=== PATIENT | female | born 1990 | race Caucasian/White ===

== ENCOUNTER 2024-04-24 19:13 | Emergency (ER) | payer MEDICAID, SELFPAY ==
[2024-04-24 19:14] VITALS: BMI 25.3
--- NOTE | 2024-04-24 19:53 | PC.NURSE ---
NO ANSWER WHEN CALLED TO BE TRIAGED
--- NOTE | 2024-04-24 20:09 | PC.NURSE ---
NO ANSWER WHEN CALLED TO BE TRIAGED
== END 2024-04-24 20:57 | disposition left against medical advice (07) ==
PROVIDERS: Emergency Provider Emergency Medicine
DX: Z53.21 Procedure and treatment not carried out due to patient leaving prior to being seen by health care provider (principal)

== ENCOUNTER 2024-12-16 16:16 | Emergency (ER) | payer MEDICAID, SELFPAY ==
[2024-12-16 16:17] VITALS: BMI 28.3
[2024-12-16 16:36] VITALS: BP 119/75; PULSE 69; RESP 18; TEMP 36.7; O2SAT 100
--- NOTE | 2024-12-16 17:17 | PD.EDADULT ---
ED General RME/HPI General Chief complaint: General Adult/Misc Complain Stated complaint: LUMP AT BASE OF NECK X 1 WK Time Seen by Provider: 12/16/24 16:55 Arrival date/time: 12/16/24 16:16 34-year-old female presents with a 1 week history of a lump on the back of her neck. She first noticed the lump when it was very small, about the size of a marble. It has since increased in size and has become red with swelling and tenderness. She denies any fever chills, nausea or vomiting. Patient is currently 8 weeks . She has another similar lesion beneath the right occipital bone, without tenderness or redness. Mode of arrival: ambulatory Limitations: no limitations Related Data Home Medications ?Medication ?Instructions ?Recorded ?Confirmed vit no.95-ferrous 1 tab PO DAILY 01/20/24 01/20/24 fumarate 28 mg-folic acid 800 mcg tablet () Previous Rx's ?Medication ?Instructions ?Recorded ferrous sulfate 325 mg (65 mg 325 mg PO BID #60 tabs 01/21/24 iron) tablet Allergies Allergy/AdvReac Type Severity Reaction Status Date / Time No Known Allergies Allergy Verified 12/16/24 16:19 Review of Systems Review of Systems Systems Reviewed: All systems reviewed, normal except as documented ED Exam General Limitations: Present no limitations General appearance: Present alert and in no apparent distress Head Head exam: Present atraumatic and normal inspection Eye Eye exam: Present normal appearance; Absent scleral icterus or conjunctival injection ENT ENT exam: Present normal exam Neck Neck exam: Present other (Cyst noted to the lower neck/upper back area. Approximate 8 cm area of induration with significant central area of fluctuance. Erythema, warmth, tenderness noted to the area.) Chest Chest inspection: Present normal inspection Respiratory Respiratory exam: Present normal lung sounds bilaterally; Absent respiratory distress Cardiovascular Cardiovascular exam: Present regular rate, normal rhythm and normal heart sounds; Absent systolic murmur or diastolic murmur Abdominal Exam Abdominal exam: Absent distention Extremities Exam Extremities exam: Present normal inspection Back Exam Back exam: Present full ROM, tenderness and other (Tenderness to the upper thoracic spinal area with swelling, erythema, warmth and tenderness.) Neurological Exam Neurological exam: Present alert and oriented X3 Psychiatric Psychiatric exam: Present normal affect and normal mood Skin Skin exam: Present warm, dry, normal color, erythema and other (Warmth, swelling, tenderness as noted above.) Course Course Course Narrative: 34-year-old female presents with a 1 week history of a lump on the back of her neck. She first noticed the lump when it was very small, about the size of a marble. It has since increased in size and has become red with swelling and tenderness. She denies any fever chills, nausea or vomiting. Patient is currently 8 weeks . She has another similar lesion beneath the right occipital bone, without tenderness or redness. Exam reveals an approximate 8 cm abscess noted to the lower cervical area/upper thoracic area. Erythema, warmth, tenderness noted. Significant area of central fluctuance. Anesthesia with 1% lidocaine with epi, approximate 6 cc given. Good anesthesia obtained. Central area of fluctuance was incised with #11 blade with immediate return of purulent, foul-smelling drainage, approximate 10 cc. Wound was irrigated with saline then packed with quarter inch iodoform gauze. Covered wound area with 4 x 4 dressing and tape. Patient tolerated procedure well. Patient was given clindamycin 300 mg p.o. (category B ) Patient was discharged home in stable and improved condition. She was instructed to return in 2 days for a follow-up recheck with myself. Orders Category Date Time Status Incision and Drainage Set Up X1 Care 12/16/24 17:19 Active Clindamycin [Cleocin] Med 12/16/24 17:20 Discontinued 300 mg PO X1 ONE Lidocaine 1% W/Epi 1:100K 20Ml [Xylocaine 1% w/Epi 1: Med 12/16/24 17:25 Discontinued 100K 20 ml] 20 ml INFL X1 ONE Vital Signs Vital signs: Vital Signs Temperature 98.1 F 12/16/24 16:36 Pulse Rate 69 12/16/24 16:36 Respiratory Rate 18 12/16/24 16:36 Blood Pressure 119/75 12/16/24 16:36 Pulse Oximetry (%) 100 12/16/24 16:36 Oxygen Delivery Method Aerosol Mask 12/16/24 16:36 Procedures -ED Abscess I/D Site: neck (Posterior) and back Local Anesthetic: lidocaine 1% and with epi Amount of anesthesia used (mL): 6 Amount of fluid expressed (mL): 10 Irrigation: Yes (Saline) Packing used?: iodoform Complications: other (Approximate 10 mL of purulent, foul-smelling drainage. No complications.) MDM Medications Medication administrations:: Medication Administration History Discontinued Medications Clindamycin HCl (Clindamycin 150 Mg Capsule) 300 mg PO X1 ONE Stop: 12/16/24 17:21 Last Admin: 12/16/24 17:37 Dose: 300 mg Documented By: CORNELIUS Lidocaine/Epinephrine (Lidocaine 1% W/Epi 1:100k 20 Ml Vial) 20 ml INFL X1 ONE Stop: 12/16/24 17:26 Last Admin: 12/16/24 17:37 Dose: 20 ml Documented By: CORNELIUS Discharge Plan Prescriptions/Referrals Prescriptions/Med Rec: No Action PNV cmb#95-ferrous fumarate-FA [] 28 mg iron- 800 mcg tablet 1 tab PO DAILY Patient Comments: TAKE 1 TABLET BY MOUTH EVERY DAY ferrous sulfate 325 mg (65 mg iron) tablet 325 mg PO BID Qty: 60 2RF Referrals: No Primary/Family,Physician [Primary Care Provider] - In 1 week Patient/Caregiver Discharge Instructions Print Language: Lebanese
[2024-12-16] MEDS: LIDOCAINE 1% W/EPI 1:100K 20 ML VIAL INFL (17:37)
[2024-12-16] MEDS: CLINDAMYCIN 150 MG CAPSULE 300 MG PO (17:37)
== END 2024-12-16 18:52 | disposition home or self-care (01) ==
PROVIDERS: Emergency Provider Emergency Medicine
DX: O99.711 Diseases of the skin and subcutaneous tissue complicating pregnancy, first trimester (principal); L02.11 Cutaneous abscess of neck; Z3A.08 8 weeks gestation of pregnancy
CPT/HCPCS: 10060; 99283; J3490; A9270

== ENCOUNTER 2025-05-21 14:42 | Observation (INO) | payer MEDICAID, SELFPAY ==
[2025-05-21] VITALS (25 sets, daily range): BP systolic 126; BP diastolic 69; PULSE 77–105; RESP 20–97; TEMP 36.3; O2SAT 96–100; BMI 28.4
[2025-05-21] MEDS: TERBUTALINE SULF INJ 1 MG/ML VIAL 0.25 MG SC (15:41)
[2025-05-21 15:45] LABS: Collection Type, Urine Clean Catch
[2025-05-21 16:13] LABS: FFN Specimen Descripton Clr Colrless Aqueous; Fetal Fibronectin Negative (Negative)
[2025-05-21 16:31] LABS: Bacteria,Urine Rare; Bilirubin,Urine Negative (Negative); Blood,Urine Negative (Negative); Clarity,Urine Clear (Clear/Hazy); Color,Urine Yellow (Lt Yel-Yel); Glucose, Urine Negative (Negative); Ketones,Urine 2+ (Negative); Leukocyte Esterase,Urine Positive (Negative); Nitrite,Urine Negative (Negative); PH,Urine 7.0 (5.0-7.0); Protein,Urine Negative (Neg - Trace); RBC,Urine 3 /hpf (0-3); Specific Gravity,Urine 1.018 (1.001-1.035); Squamous Epithelial Cell,Urine 7 /hpf (0-5); Urobilinogen,Urine Negative mg/dL (0.0-1.0); WBC,Urine 10 /hpf (0-5)
[2025-05-21] MEDS: NITROFURANTOIN MACRO 100 MG CAPSULE PO (17:31)
== END 2025-05-21 17:35 | disposition home or self-care (01) ==
PROVIDERS: Admitting Provider Specialist; Visit Provider Specialist
DX: O26.899 Other specified pregnancy related conditions, unspecified trimester (principal); R25.2 Cramp and spasm; Z3A.00 Weeks of gestation of pregnancy not specified
CPT/HCPCS: 59025; 59899; 81001; 81514; 82731; 87086; J3105; A9270

== ENCOUNTER 2025-07-23 10:34 | Inpatient (IN) | payer MEDICAID, SELFPAY ==
--- NOTE | 2025-07-20 10:57 | ESHP_ITS ---
RE: FILIPPO RAMOS : 1990 DATE OF ADMISSION: 07/23/2025 DATE OF SURGERY: 07/23/2025 HISTORY OF PRESENT ILLNESS: This is a 35-year-old 8, para 4-0-3-4, with due date of 07/30 with intrauterine at 39 weeks on 07/23, who presents for a repeat delivery. She is also multiparous and desires voluntary sterilization. She reports normal movement. She denies any leaking or bleeding. She reports occasional contractions. Her care was complicated by iron deficiency anemia. MEDICATIONS: 1. multivitamin 1 p.o. daily. 2. Ferrous sulfate 325 mg 1 p.o. daily. ALLERGIES: NO KNOWN DRUG ALLERGIES. PAST MEDICAL HISTORY: Gestational thrombocytopenia. Nuchal cyst. Recurrent iron deficiency anemia. Urinary tract infection. FAMILY HISTORY: Paternal grandmother, brain and liver cancer. Maternal aunt, kidney disease. OBSTETRIC HISTORY: In 2009, 40-week, normal vaginal delivery, 8 pound 10 ounce male, no complications. In 2015, normal vaginal delivery, 8 pound 6 ounce female, no complications. In 2021, 40-week, normal vaginal delivery, 6 pounds 5 ounce, no complications. In 2009, termination of , first trimester, oral medications. In 2010, termination of , first trimester, oral medications. In 2023, 40-week, normal vaginal delivery, 7 pound 6 ounce female, no complications. In 10/2024, spontaneous AB, first trimester, no D and C. PAST SURGICAL HISTORY: Denies. REVIEW OF SYSTEMS: She denies any chest pain, palpitations, cough, fever, shortness of breath, or lower extremity pain. She denies any flank pain. PHYSICAL EXAMINATION: VITAL SIGNS: Blood pressure is 120/74, heart rate 88, respirations 16, temperature is 98.2. HEENT: Oropharynx and sclerae clear. LUNGS: Clear to auscultation bilaterally. HEART: Regular rate and rhythm. ABDOMEN: Gravid, term size. PELVIC: See RN notes. EXTREMITIES: Nontender. SKIN: No gross rashes or lesions. NEUROLOGIC: No focal deficit. ASSESSMENT AND PLAN: Intrauterine at 39 weeks on 07/23. Desires primary delivery and bilateral tubal ligation. Informed consent was obtained. The patient was made aware of the risks, complications, alternatives, benefits of the proposed procedure, and she agrees. She is aware of the failure rate and increased risk of tubal ectopic gestation if occurs. She is aware of the reversible methods of control and she declines those options. Her spouse is aware of the option of vasectomy and he declines that option. DT: 10:32:48 TT: 10:57:00 Ref: [id number] - TID: [id number] [facility]
[2025-07-22 12:38] LABS: Basophils # (Auto) 0.0 Thou/mm3 (0.0-0.2); Basophils % (Auto) 0 % (0-2.5); Eosinophils # (Auto) 0.1 Thou/mm3 (0.0-0.5); Eosinophils % (Auto) 1 % (0-10); Hematocrit 31.2 % (36.0-46.0); Hemoglobin 10.7 g/dL (12.0-16.0); Immature Granulocytes Auto 0.03 Thou/mm3 (0.00-0.00); Lymphocytes # (Auto) 0.8 Thou/mm3 (1.0-4.8); Lymphocytes % (Auto) 14 % (10-50); Mean Corpuscular HGB Conc 34.3 g/dl (31.0-37.0); Mean Corpuscular Hemoglobin 33.4 pg (25.0-35.0); Mean Corpuscular Volume 98 fL (80-100); Monocytes # (Auto) 0.5 Thou/mm3 (0.0-0.8); Monocytes % (Auto) 9 % (0-12); Neutrophils # (Auto) 4.1 Thou/mm3 (1.8-7.7); Neutrophils % (Auto) 75 % (37-80); Nucleated Red Blood Cell # 0.00 Thou/mm3 (0.00-0.00); Nucleated Red Blood Cell % 0 /100 WBC (0); Platelet Count 126 Thou/mm3 (140-440); RDW Standard Deviation 51.2 fL (36.4-46.3); Red Blood Count 3.20 Miln/mm3 (4.00-5.20); White Blood Count 5.5 Thou/mm3 (3.6-11.0)
[2025-07-22 12:55] LABS: Alanine Aminotransferase 11 U/L (10-49); Albumin, Serum 3.9 gm/dL (3.5-5.0); Albumin/Globulin Ratio 1.6 (1.2-2.2); Alkaline Phosphatase 169 U/L (46-116); Anion Gap 9 (7-16); Aspartate Amino Transferase 21 U/L (0-34); BUN/Creatinine Ratio 10 Ratio (12-20); Bilirubin,Total 1.2 mg/dL (0.3-1.2); Blood Urea Nitrogen 5 mg/dL (9-23); Calcium 9.5 mg/dL (8.3-10.6); Calcium (Corrected) 9.6 mg/dL (8.5-10.1); Carbon Dioxide 22.3 mMol/L (20.0-31.0); Chloride 108 mMol/L (98-107); Creatinine (Component) 0.5 mg/dL (0.6-1.3); Globulin 2.5 gm/dL (2.3-3.5); Glucose 63 mg/dL (74-106); Osmolality,Calculated 272 (275-295); Potassium 4.4 mMol/L (3.4-5.1); Sodium 139 mMol/L (136-145); Total Protein 6.4 gm/dL (5.7-8.2); eGFR > 60 See Note
[2025-07-22 13:00] LABS: INR 0.9 (0.9-1.3); Partial Thromboplastin Time 24.4 Seconds (22.0-36.0); Prothrombin Time 9.8 Seconds (9.0-12.2)
[2025-07-22 13:14] LABS: Syphilis Nonreactive (Nonreactive)
[2025-07-23] VITALS (13 sets, daily range): BP systolic 96–121; BP diastolic 52–81; PULSE 65–106; RESP 15–22; TEMP 36.4–37.2; O2SAT 96–100; BMI 28.5; BMI 28.8
--- NOTE | 2025-07-23 10:52 | PD.ADDHP ---
Addendum History & Physical Addendum Date of report being addended: 07/23/25 Narrative: Pt sprained her right ankle over the weekend. X Ray shows no fracture. Exam shows slight swelling and ecchymosis No additional changes in history or physical exam.
[2025-07-23] MEDS: RINGERS LACTATED 1000 ML 1,000 ML 100 ML IV (12:15)
[2025-07-23] MEDS: FAMOTIDINE INJ 10 MG/ML VIAL 2 ML 20 MG IV (12:15)
[2025-07-23] MEDS: METOCLOPRAMIDE INJ 5 MG/ML VIAL 2 ML 10 MG IVP (12:15)
[2025-07-23] MEDS: ceFAZolin/D5W 2 GM IV 2 GM/100 ML BAG IV (12:15)
--- NOTE | 2025-07-23 12:35 | PD.GYNPROC ---
Operative Note - APARTMENT ASSISTANT MANAGER Procedure Date of procedure: 07/23/25 Procedure Performed: Primary low-transverse section via Pfannenstiel skin incision Bilateral salpingectomy Indication: Intrauterine at 39 weeks Desires primary delivery Multiparity desires voluntary sterilization Pre-Op diagnosis: Intrauterine at 39 weeks Desires primary delivery Multiparity desires voluntary sterilization Post-Op diagnosis: Intrauterine at 39 weeks Desires primary delivery Multiparity desires voluntary sterilization Anesthesia type: Spinal Procedure description: After proper informed consent was obtained and the patient was made aware of the risks, complications, alternatives and benefits of the proposed procedure she was taken to the operating room where she underwent induction of spinal anesthesia. She was prepped and draped in the usual sterile fashion. A timeout was performed.? A Pfannenstiel skin incision was made with the scalpel and carried through to the underlying layer of fascia with the Bovie. The fascia was nicked in the midline incision and the incision was extended bilaterally with the Bovie. The inferior aspect of the fascial incision was grasped with Natalia clamps elevated and the underlying rectus muscle dissected off with the Bovie. The superior aspect the fascial incision was grasped with Natalia clamps elevated and the underlying rectus muscle dissected off with the Bovie. The rectus muscles were in the midline. The peritoneum was grasped between 2 Mena clamps and entered sharply with the Metzenbaum scissors. The peritoneum was extended superiorly and inferiorly with good visualization of the bladder. The vesicouterine peritoneum was incised transversely and the bladder flap created digitally. A Toluca blade was inserted. A low transverse incision was made in the uterus with a scapel and the incision was extended digitally. The 's head delivered and the mouth and nose were suctioned with the bulb suction. The shoulder and body delivered atraumatically. The cord was clamped after 30 second delayed cord clamping and the cord was cut.? The female infant was handed off to the waiting Pediatric staff, cord blood was collected for lab testing. The placenta was removed complete and intact. The uterus was exteriorized and cleared of all clots and debris. The uterine incision was closed with #1-0 chromic catgut suture in a running interlocking fashion. A second layer of the same suture was used to imbricate the first layer and obtain excellent hemostasis. The vesicouterine peritoneum was closed with 2-0 chromic catgut suture in a running fashion. Attention was turned to the left fallopian tube which was grasped at the fimbriated end with a Canelo clamp and using the Enseal X-1 large jaw a left salpingectomy was performed. Hemostasis achieved. Attention was turned to the right fallopian tube which was grasped at the fimbriated end with a Mccoy clamp and using the Enseal X-1 large jaw a left salpingectomy was performed. Hemostasis achieved. The firm uterus was returned to the abdomen. The gutters were cleared of all clots and debris. The adnexae were revisualized along with the lower uterine segment and all was hemostatic. The peritoneum was closed with 0 chromic catgut suture in running fashion. The rectus muscle was closed with 0 chromic catgut suture. The fascia was closed with 0 Vicryl beginning at each angle and ending in the center in a running fashion. The subcutaneous tissue was irrigated with warmed normal saline solution and found to be hemostatic. The subcutaneous tissue was closed with 2-0 chromic catgut suture in a running fashion. The skin was closed with 4-0 Monocryl. A Dermabond Prineo dressing was applied and a sterile pressure dressing was applied.? She tolerated the procedure well. Counts were correct. I discussed with the patient the nature of her condition, intraoperative findings and expectation for recovery all questions answered. Specimen: left tube and right tube Findings: Live female infant Cephalic presentation Apgars 8 and 9 Weight 7lbs 5 oz. Amniotic fluid clear Placenta removed complete and intact Uterus ovaries and tubes grossly within normal limits Complications: none Surgical staff Victor M Lakhani, GLENROY French, Surgeon Med BANDAA Operation Date: 07/23/25 12:45 <No data on this case meets the specified criteria> Diagnosis Discharge Diagnosis (1) delivery delivered: Status: Acute (2) Sterilization: Status: Acute Problem List Completed Was Problem List Reviewed/Reconciled?: Yes
[2025-07-23] MEDS: ONDANSETRON INJ 2 MG/ML INJ 2 ML 4 MG IVP (15:30)
[2025-07-23 19:00] LABS: Basophils # (Auto) 0.0 Thou/mm3 (0.0-0.2); Basophils % (Auto) 0 % (0-2.5); Eosinophils # (Auto) 0.0 Thou/mm3 (0.0-0.5); Eosinophils % (Auto) 0 % (0-10); Hematocrit 29.7 % (36.0-46.0); Hemoglobin 10.1 g/dL (12.0-16.0); Immature Granulocytes Auto 0.04 Thou/mm3 (0.00-0.00); Lymphocytes # (Auto) 0.9 Thou/mm3 (1.0-4.8); Lymphocytes % (Auto) 8 % (10-50); Mean Corpuscular HGB Conc 34.0 g/dl (31.0-37.0); Mean Corpuscular Hemoglobin 32.8 pg (25.0-35.0); Mean Corpuscular Volume 96 fL (80-100); Monocytes # (Auto) 0.6 Thou/mm3 (0.0-0.8); Monocytes % (Auto) 6 % (0-12); Neutrophils # (Auto) 8.9 Thou/mm3 (1.8-7.7); Neutrophils % (Auto) 85 % (37-80); Nucleated Red Blood Cell # 0.00 Thou/mm3 (0.00-0.00); Nucleated Red Blood Cell % 0 /100 WBC (0); Platelet Count 133 Thou/mm3 (140-440); RDW Standard Deviation 50.0 fL (36.4-46.3); Red Blood Count 3.08 Miln/mm3 (4.00-5.20); White Blood Count 10.4 Thou/mm3 (3.6-11.0)
[2025-07-23] MEDS: OXYTOCIN in NS 20 units 20 UNIT/1,000 ML BAG 125 UNIT IV (20:47)
[2025-07-24] MEDS: KETOROLAC INJ 30 MG/ML VIAL IVP (00:09)
[2025-07-24 03:10] VITALS: BP 98/60; PULSE 67; RESP 16; TEMP 36.7; O2SAT 96
--- NOTE | 2025-07-24 06:49 | ESPR_ITS ---
RE: FILIPPO RAMOS : 1990 DATE OF SERVICE: 07/24/2025 SUBJECTIVE: Postoperative day #1 the patient denies any problem or complaints. She is voiding, she is ambulating, she is tolerating regular diet, she is passing flatus. She denies any excessive vaginal bleeding. She denies any dizziness or lightheadedness. She denies any chest pain, palpitations, shortness of breath, or lower extremity pain. OBJECTIVE: VITAL SIGNS: Blood pressure 98/60, heart rate 67, respirations 16, temperature is 98.1, pulse oximetry is 96% on room air. LUNGS: Clear to auscultation bilaterally. HEART: Regular rate and rhythm. ABDOMEN: Nondistended. Dressing dry and intact. Fundus is firm. EXTREMITIES: Nontender. LABORATORY DATA: Hemoglobin pre-delivery is 10.7, post-delivery is 10.1. ASSESSMENT: Postoperative day #1 status post delivery and bilateral salpingectomy. PLAN: 1. Remove dressing. 2. Discontinue IV. 3. Encourage ambulation. 4. support. 5. Possible discharge home tomorrow. DT: 06:27:10 TT: 06:48:00 Ref: [id number] - TID: [id number]
[2025-07-24 08:15] VITALS: BP 99/62; PULSE 70; RESP 16; TEMP 37; O2SAT 96
[2025-07-24] MEDS: DOCUSATE SOD 100 MG CAPSULE PO (08:53)
[2025-07-24] MEDS: ENOXAPARIN SOD INJ 40 MG/0.4 ML SYRINGE SC (09:25)
--- NOTE | 2025-07-24 10:21 | PC.SS ---
QUARTZ ORIENTATOR and student conducted bedside contact with the patient to address nursing referral indicating patient had HX of depression. QUARTZ ORIENTATOR and student introduced self and role.? At bedside with patient was FOB, Arie Miller. Patient was seen by Dr. French . Patient denies HX of Mental health. ?Patient reported that with her last child she had depression due to difficult relationship with prior partner. ?Infant delivered . was asleep at bedside.? Patient reports compliance with OB appointments.? Patient plans to breast feed. Patient is aligned with WIC, TANF, and SNAP. Patient denies history of alcohol/drug abuse.? Patient denies episodes of domestic violence. Patient has access to appropriate supplies and equipment. Patient reports she has 4 other children. 15yr, Boy, 9yr, girls, 3yr, and 1yr old girl.? FOB will provide transportation upon discharge.? Patient describes possessing support system of her parents. ???QUARTZ ORIENTATOR and student provided community resources to include [employer] and [employer].? No further intervention required at this time, social media marketing specialist would be available to address any further concerns.? QUARTZ ORIENTATOR updated bedside nurse.
--- NOTE | 2025-07-24 12:07 | PD.LDDELS ---
Data (Leon) Data Hx Section: No : 5 Term: 3 : 0 Livin Abortions: Spontaneous & Theraputic: 0 Delivery Data (Leon) Labor Data Induction/Augmentation Agent: None ROM date: 07/23/25 ROM time: 13:02 Amniotic membrane rupture type: Artificial Amniotic fluid description: Clear Delivery Data EDC: 07/30/25 EDC calculated by:: LMP/early US confirmation delivery date: 07/23/25 delivery time: 13:02 Gestational age (weeks): 39 Gestational age (days): 0 Placenta delivery date: 07/23/25 Placenta delivery time: 13:03 Delivered by: Arie French Delivery nurse: WEST Das nurse: MATT Surgical Territory Manager at delivery: No Support person(s) at delivery: FOB Other staff at delivery: SAVITA COTTRELL SAYAR Delivery Method Delivery method: Low Transverse Presentation: Vertex Anesthesia Type Anesthesia Type: Spinal Anesthesia type: Spinal Placenta Placenta delivery description: Manual Removal Cord blood sent to lab: No cord blood collection: Cord Blood Type Episiotomy Episiotomy description: None EBL Estimated blood loss (ml): 500 Umbilical Cord cord description: 3 Vessels Additional Procedures Bilateral salpingectomy [place] Data (Leon) Data order: 1 's gender: Female Identification band number: [id number] weight (gms): 7 lb 5.462 oz Weight (pounds): 7 lbs and 5.5 ozs length: 21 in 1 minute: 8 5 minutes: 9
[2025-07-24 12:27] VITALS: BP 102/64; PULSE 77; RESP 14; TEMP 37.2; O2SAT 98
[2025-07-24] MEDS: IBUPROFEN TAB 400 MG TABLET 800 MG PO (15:18)
[2025-07-24] MEDS: SIMETHICONE 80 MG CHEW PO (15:18)
[2025-07-24 20:30] VITALS: BP 101/57; PULSE 80; RESP 18; TEMP 36.8; O2SAT 98
[2025-07-25] MEDS: HYDROcodone/APAP 5/325 TABLET 1 TAB PO ×2 (03:25→07:48)
[2025-07-25] MEDS: SIMETHICONE 80 MG CHEW PO (03:25)
[2025-07-25 04:15] VITALS: BP 106/71; PULSE 80; RESP 16; TEMP 36.8; O2SAT 97
--- NOTE | 2025-07-25 07:15 | ESPR_ITS ---
RE: FILIPPO RAMOS : 1990 DATE OF SERVICE: 07/25/2025 SUBJECTIVE: Postop day #2. Patient denies any problem or complaint. She is voiding, she is ambulating, she is tolerating diet, she is passing flatus. She denies any excessive vaginal bleeding. She denies any dizziness or lightheadedness. She denies any chest pain, palpitations, shortness of breath, or lower extremity pain. OBJECTIVE: VITAL SIGNS: Blood pressure 106/71, heart rate 80, respirations 16, temperature is 98.2. Pulse oximetry is 97% on room air. LUNGS: Clear to auscultation bilaterally. HEART: Regular rate and rhythm. ABDOMEN: Fundus is firm, incision clear and intact. EXTREMITIES: Nontender. ASSESSMENT: Postoperative day #2 status post delivery and bilateral salpingectomy. PLAN: Discharge home, discharge instructions given, follow up in the office in 1 week. DT: 06:45:59 TT: 07:14:00 Ref: [id number] - TID: [id number]
[2025-07-25 07:50] VITALS: BP 104/66; PULSE 71; RESP 17; TEMP 36.6; O2SAT 98
[2025-07-25] MEDS: DOCUSATE SOD 100 MG CAPSULE PO (07:57)
== END 2025-07-25 11:55 | disposition home or self-care (01) | DRG 539 ==
LOC: S4SX 12:30 → S4NX 12:36
PROVIDERS: Admitting Provider Specialist; Visit Provider Specialist
PROC: 0UL70ZZ Occlusion of Bilateral Fallopian Tubes, Open Approach (ICD-10-PCS; CPT 59514; principal; 2025-07-23 12:30)
DX: O34.211 Maternal care for low transverse scar from previous cesarean delivery (principal); Z30.2 Encounter for sterilization; Z37.0 Single live birth; Z3A.39 39 weeks gestation of pregnancy; O99.02 Anemia complicating childbirth; D50.9 Iron deficiency anemia, unspecified
CPT/HCPCS: 36415; 59409; 80053; 85025; 85610; 85730; 86780; 86850; 86900; 86901; 86923; 94762; A4217; A4649; C1765; J0689; J1200; J1650; J1885; J2274; J2371; J2405; J2590; J2765; J3010; J3490; J7120; A9270; J2270